=== PATIENT | male | born 1975 | race Caucasian/White ===

== ENCOUNTER 2021-08-29 10:48 | Day surgery (SDC) | payer BC ==
[~2021-08-29] VITALS: Ht 182.9 cm; Wt 93.2 kg
[2021-08-29 11:35] VITALS: BP 135/95; PULSE 73; TEMP 97.9
[2021-08-29 14:45] VITALS: BP 110/66; PULSE 64; TEMP 98.5
--- NOTE | 2021-08-29 14:45 | NUR ---
Patient arrived back into [facility] from OR. Report recieved from VERENA Rowell and DARLINE Garcia. Patient asleep and snoring. at bedside. Vital signs stable on O2
[2021-08-29] MEDS ORDERED: NORCO 325 MG-51 TAB PO (14:50)
[2021-08-29 15:00] VITALS: BP 113/83; PULSE 66
--- NOTE | 2021-08-29 15:00 | NUR ---
Patient asleep, arousable to physical stimulation. Resting with eyes closed. Vital signs stable on supplemental oxygen at 3L. at bedside.
[2021-08-29 15:15] VITALS: BP 112/81; PULSE 65
--- NOTE | 2021-08-29 15:15 | NUR ---
Patient alert and awake. Vital signs stable on room air. Denies pain or nausea.
[2021-08-29 15:30] VITALS: BP 125/85; PULSE 70
--- NOTE | 2021-08-29 15:30 | NUR ---
Patient doing well. Alert and awake. States having pain when moving. Patient up to restroom independently. Patient got dressed with assistance of . Pain medication given per MAR. Patient able to void successfully.
--- NOTE | 2021-08-29 15:55 | NUR ---
Patient tolerated jello and water. Pain medication given per MAR. Voided and got dressed. Went through discharge instructions with patient and . Questions answered. Patient escorted to patient entrance via wheelchair. pulled up personal vehicle and patient got into personal vehicle unassisted and patient left in the care of his .
== END 2021-08-29 16:00 | disposition home or self-care (01) ==
LOC: SDCO 10:48
DX: K40.90 Unilateral inguinal hernia, without obstruction or gangrene, not specified as recurrent (principal); Z83.3 Family history of diabetes mellitus
CPT/HCPCS: C1781; J0690; J1100; J1885; J2250; J2405; J2704; J7120